=== PATIENT | male | born 1965 | race Caucasian/White ===

== ENCOUNTER → 2021-06-20 | Outpatient (CLI) | payer OTHER ==
[~2021-06-20] MED LIST: CYANOCOBALAMIN 1,000 MCG/ML 1 ML VIAL IM NR
[2021-06-20 15:20] VITALS: BP 143/86; PULSE 69; RESP 18; TEMP 97.9
== END ==
LOC: PROCWHC3 14:52
PROVIDERS: ATTEND Surgery Plastic and Reconstructive Surgery
DX: D51.9 Vitamin B12 deficiency anemia, unspecified (principal); Z88.1 Allergy status to other antibiotic agents; Z91.012 Allergy to eggs
CPT/HCPCS: 96372; J3420

== ENCOUNTER 2021-07-15 06:55 | Day surgery (SDC) | payer OTHER ==
[2021-07-11 10:56] VITALS: BMI 45.5
[~2021-07-15 06:55] MED LIST changes: -CYANOCOBALAMIN 1,000 MCG/ML 1 ML VIAL IM NR; +LACTATED RINGERS 1,000 ML IV SCH
[2021-07-15 07:13] VITALS: RESP 16; TEMP 96.3
[2021-07-15] MEDS ORDERED: LIDOCAINE 1% (10MG/ML) FOR IV START INTRADERMA ONE (07:24)
--- NOTE | 2021-07-15 07:38 | P.GSHP ---
History of Present Illness H&P Date: 07/15/21 CHIEF COMPLAINT: GERD HISTORY OF PRESENT ILLNESS: The patient is a 55-year-old male who presents reports gastroesophageal reflux disease. Upper endoscopy was offered for further evaluation and management. PAST MEDICAL HISTORY: Please see list. PAST SURGICAL HISTORY: Please see list. MEDICATIONS: Please see list. ALLERGIES: Please see list. SOCIAL HISTORY: No illicit drug use FAMILY HISTORY: No reports of Crohn disease or ulcerative colitis. REVIEW OF ORGAN SYSTEMS: CONSTITUTIONAL: No reports of fevers or chills. GI: Denies any blood in stools or constipation. PHYSICAL EXAM: VITAL SIGNS: Stable GENERAL: Well-developed and pleasant in no acute distress. HEENT: No scleral icterus. Extraocular movements grossly intact. Moist buccal mucosa. NECK: Supple without lymphadenopathy. CHEST: Unlabored respirations. Equal bilateral excursions. CARDIOVASCULAR: Regular rate and rhythm. Distal 2+ pulses. ABDOMEN: Soft, nondistended. MUSCULOSKELETAL: No clubbing, cyanosis, or edema. ASSESSMENT: 1. Gastroesophageal reflux disease PLAN: 1. Recommend proceeding with an upper endoscopy Past Medical History Past Medical History: Asthma, Hypertension, Sleep Apnea/CPAP/BIPAP Additional Past Medical History / Comment(s): borderline diabetic. hiatal hernia at age 23,uses cpap History of Any Multi-Drug Resistant Organisms: None Reported Past Surgical History: Tonsillectomy Additional Past Surgical History / Comment(s): varicose vein stripping right leg. bilateral cataract surgery 2019. Past Anesthesia/Blood Transfusion Reactions: No Reported Reaction Additional Past Anesthesia/Blood Transfusion Reaction / Comment(s): 06/05/21 - no blood transfusions to date. Smoking Status: Former smoker - Past Family History Mother Family Medical History: No Reported History Medications and Allergies Home Medications Medication Instructions Recorded Confirmed Type Budesonide-Formot 160-4.5 Mcg 2 inhalation INHALATION BID 06/20/21 07/15/21 History [Symbicort 160-4.5 Mcg Inhaler] Cetirizine HCl [Zyrtec] 10 mg PO HS 06/20/21 07/15/21 History Escitalopram [Lexapro] 10 mg PO HS 06/20/21 07/15/21 History Metoprolol Succinate [Toprol XL] 25 mg PO HS 06/20/21 07/15/21 History Multivitamins, Thera [Multivitamin 1 dose PO DAILY 06/20/21 07/15/21 History (formulary)] Zinc 25 mg PO DAILY 06/20/21 07/15/21 History amLODIPine [Norvasc] 10 mg PO HS 06/20/21 07/15/21 History hydroCHLOROthiazide [Hydrodiuril] 25 mg PO DAILY 06/20/21 07/15/21 History lisinopriL 40 mg PO HS 06/20/21 07/15/21 History Allergies Allergy/AdvReac Type Severity Reaction Status Date / Time cephalexin [From [place]] Allergy Rash/Hives Verified 07/11/21 10:48 egg Allergy Rash/Hives Verified 07/11/21 10:48 Surgical - Exam Vital Signs Temp Pulse Resp BP Pulse Ox 96.3 F L 63 16 152/85 94 L 07/15/21 07:10 07/15/21 07:10 07/15/21 07:10 07/15/21 07:10 07/15/21 07:10
[2021-07-15] MEDS ORDERED: PROPOFOL 10 MG/ML 20 ML VIAL IV ONE (07:40)
[2021-07-15] MEDS ORDERED: fentaNYL (PF) 50 MCG/ML 2 ML AMP ONE (07:40)
[2021-07-15 08:14] VITALS: BP 117/79; PULSE 60
--- NOTE | 2021-07-15 08:16 | P.PCN ---
Date of Procedure: 07/15/21 Description of Procedure: PREOPERATIVE DIAGNOSIS: Gastroesophageal reflux disease. Morbid obesity. POSTOPERATIVE DIAGNOSIS: Morbid obesity. Gastritis. Gastroesophageal reflux disease with erosive esophagitis Duodenitis OPERATION: Esophagogastroduodenoscopy with biopsies along antrum and duodenum SURGEON: Lucia Vega MD ANESTHESIA: MAC. INDICATIONS: The patient is a 55-year-old male who presents with a history of reflux disease. Benefits and risks of the procedure were described. Informed consent was obtained. DESCRIPTION: The patient was brought into the endoscopy suite and laid in the left lateral decubitus position. An Olympus gastroscope was passed along the posterior oropharynx down to the distal esophagus where the squamocolumnar junction was encountered at 41 cm from the incisors. The stomach was entered and no bile reflux was found. Additional findings are listed below. Biopsies with cold forceps were obtained of the antrum. The first through third portion of the duodenum was examined and remarkable for duodenitis. Retroflexion of the scope confirmed Hill grade 2 lower esophageal valve. The squamocolumnar junction demonstrated LA grade B erosive esophagitis. The stomach was desufflated. The patient tolerated the procedure well. FINDINGS: Squamocolumnar junction 41 cm from the incisors. Diaphragmatic hiatus at 41 cm. Hill grade 2 lower esophageal valve. LA grade B erosive esophagitis. Active duodenitis with mucosal hyperplasia along first portion of duodenum, bi opsies obtained Chronic gastritis, biopsies obtained RECOMMENDATIONS: 1. Omeprazole 40 mg daily for 2 weeks 2. Upper endoscopy as needed. Plan - Discharge Summary Discharge Rx Participant: No New Discharge Prescriptions: New RX: Omeprazole [PriLOSEC] 40 mg PO DAILY #14 cap Continue RX: Budesonide-Formot 160-4.5 Mcg [Symbicort 160-4.5 Mcg Inhaler] 2 inhalation INHALATION BID RX: amLODIPine [Norvasc] 10 mg PO HS RX: Cetirizine HCl [Zyrtec] 10 mg PO HS RX: Zinc 25 mg PO DAILY RX: lisinopriL 40 mg PO HS RX: Metoprolol Succinate [Toprol XL] 25 mg PO HS RX: hydroCHLOROthiazide [Hydrodiuril] 25 mg PO DAILY RX: Escitalopram [Lexapro] 10 mg PO HS RX: Multivitamins, Thera [Multivitamin (formulary)] 1 dose PO DAILY Discharge Medication List RX: Budesonide-Formot 160-4.5 Mcg [Symbicort 160-4.5 Mcg Inhaler] 2 inhalation INHALATION BID 06/20/21 [History] RX: Cetirizine HCl [Zyrtec] 10 mg PO HS 06/20/21 [History] RX: Escitalopram [Lexapro] 10 mg PO HS 06/20/21 [History] RX: Metoprolol Succinate [Toprol XL] 25 mg PO HS 06/20/21 [History] RX: Multivitamins, Thera [Multivitamin (formulary)] 1 dose PO DAILY 06/20/21 [History] RX: Zinc 25 mg PO DAILY 06/20/21 [History] RX: amLODIPine [Norvasc] 10 mg PO HS 06/20/21 [History] RX: hydroCHLOROthiazide [Hydrodiuril] 25 mg PO DAILY 06/20/21 [History] RX: lisinopriL 40 mg PO HS 06/20/21 [History] RX: Omeprazole [PriLOSEC] 40 mg PO DAILY #14 cap 07/15/21 [Rx] [place] [facility]ment[facility]Ref[place] [facility] [place] [place] [place] Patient Instructions/Handouts: Gastroesophageal Reflux Disease (DC), Esophagitis (DC), Diet for Stomach Ulcers and Gastritis (ED) Discharge Disposition: HOME SELF-CARE
== END 2021-07-15 08:37 | disposition home or self-care (01) ==
LOC: ORWHC2ENDO 06:55
PROVIDERS: ATTEND Surgery Plastic and Reconstructive Surgery
DX: K29.80 Duodenitis without bleeding (principal); K29.50 Unspecified chronic gastritis without bleeding; K21.00 Gastro-esophageal reflux disease with esophagitis, without bleeding; I10 Essential (primary) hypertension; G47.30 Sleep apnea, unspecified; R73.03 Prediabetes; J45.909 Unspecified asthma, uncomplicated; E66.01 Morbid (severe) obesity due to excess calories; Z68.42 Body mass index [BMI] 45.0-49.9, adult; Z98.890 Other specified postprocedural states; Z98.42 Cataract extraction status, left eye; Z98.41 Cataract extraction status, right eye; Z87.891 Personal history of nicotine dependence; Z79.51 Long term (current) use of inhaled steroids; Z79.899 Other long term (current) drug therapy; Z88.1 Allergy status to other antibiotic agents; Z91.012 Allergy to eggs
CPT/HCPCS: 88305; 43239; J3010; J2704

== ENCOUNTER → 2022-04-10 | Outpatient (CLI) | payer OTHER | END | disposition home or self-care (01) | LOC: LABWHC1 13:18 | PROVIDERS: ATTEND Surgery Plastic and Reconstructive Surgery | DX: Z53.9 Procedure and treatment not carried out, unspecified reason (principal) ==

== ENCOUNTER 2022-04-24 13:05 | Inpatient (IN) | payer OTHER ==
--- NOTE | 2022-04-24 09:03 | P.BASOAP ---
Subjective Progress Note Date: 04/24/22 CHIEF COMPLAINT: Morbid obesity HISTORY OF PRESENT ILLNESS: Long Biswas is a 56-year-old female who comes with lifelong morbid obesity. As a result of his morbid obesity, her has developed lower back pain, osteoarthritis of the knee, ankles and feet and sleep apnea. He comes in with hypertension. He has completed bariatric risk assessment. At height of 6 feet 1 inches, his ideal body weight is 188 pounds. His highest weight is 370 pounds, BMI 48.9. PAST MEDICAL HISTORY: 1. Morbid obesity due to excess calories 2. Body mass index of 48.9 initial 3. Chronic obstructive pulmonary disease 4. Depressive disorder 5. Hypertensive heart disease 6. Asthma 7. Sleep apnea PAST SURGICAL HISTORY: 1. Tonsillectomy 2. Bilateral cataract surgery 3. Vein stripping 4. Colonoscopy. HOME MEDICATIONS: Home Medications Medication Instructions Recorded Confirmed Budesonide-Formot 160-4.5 Mcg 2 inhalation INHALATION BID 06/20/21 09/04/21 [Symbicort 160-4.5 Mcg Inhaler] Cetirizine HCl [Zyrtec] 10 mg PO HS 06/20/21 09/04/21 Escitalopram [Lexapro] 10 mg PO HS 06/20/21 09/04/21 Metoprolol Succinate [Toprol XL] 25 mg PO HS 06/20/21 09/04/21 Multivitamins, Thera [Multivitamin 1 dose PO DAILY 06/20/21 09/04/21 (formulary)] Zinc 25 mg PO DAILY 06/20/21 09/04/21 amLODIPine [Norvasc] 10 mg PO HS 06/20/21 09/04/21 hydroCHLOROthiazide [Hydrodiuril] 25 mg PO DAILY 06/20/21 09/04/21 lisinopriL 40 mg PO HS 06/20/21 09/04/21 Previous Rx's Medication Instructions Recorded Omeprazole [PriLOSEC] 40 mg PO DAILY #14 cap 07/15/21 ALLERGIES: Allergies Allergy/AdvReac Type Severity Reaction Status Date / Time cephalexin [From [place]] Allergy Rash/Hives Verified 09/04/21 16:44 egg Allergy Rash/Hives Verified 09/04/21 16:44 SOCIAL HISTORY: Past tobacco use. FAMILY HISTORY: No family history of ulcerative colitis disease or Crohn's disease. Family history of morbid obesity. No lupus in the family. No reports of stomach or esophageal cancer. His mother and daughter has troubles with t heir weight. His mother had her gallbladder removed. His mother has sleep apnea. REVIEW OF ORGAN SYSTEMS: CONSTITUTIONAL: At height of 6 feet 1 inches, his ideal body weight is 188 pounds. His highest weight is 370 pounds, BMI 48.9. He comes in 356 pounds. His body mass index is 47.0. He is 168 pounds overweight. HEENT: Denies any active troubles with vision or hearing. ENDOCRINE: Denies diabetes. No hypothyroidism. CARDIOVASCULAR: Has hypertensive heart disease. RESPIRATORY: Has chronic obstructive pulmonary disease. Has asthma. Has sleep apnea. GASTROINTESTINAL: Denies any bright red blood per rectum. No diarrhea. No constipation. GENITOURINARY: Denies bladder urgency. No recent blood in urine MUSCULOSKELETAL: He has lower back pain. No hip pain. He has both knee pain, including ankles and feet. NEURO: No headaches. No seizure disorders. Has neuropathy. PSYCH: Has depression. No suicidal ideation. RHEUMATOLOGIC: No lupus. No rheumatoid arthritis. HEMATOLOGIC: Denies any abnormal bleeding or bruising. SKIN: No rash. No skin cancer. PHYSICAL EXAM: VITAL SIGNS: Height 6 foot 1 inches, weight 356 pounds. BMI 47.0 GENERAL: Well-developed in no acute distress. HEENT: No scleral icterus. Extraocular movements grossly intact. Hears conversational speech. No nasal drainage. NECK: Supple without lymphadenopathy. CHEST: Nonlabored respirations with equal bilateral excursions. CARDIOVASCULAR: Regular rate and regular rhythm. Distal 2+ pulses. ABDOMEN: Obese, soft, nontender, nondistended. MUSCULOSKELETAL: No clubbing, cyanosis. NEURO: No focal or lateralizing signs. Cranial nerves 2 through 12 grossly within normal limits. PSYCH: Appropriate affect. Alert and oriented to person, place and time. SKIN: Good skin turgor. Well perfused. ASSESSMENT: 1. Morbid obesity due to excess calories 2. Body mass index of 48.9 initial 3. Chronic obstructive pulmonary disease 4. Depressive disorder 5. Hypertensive heart disease 6. Asthma 7. Sleep apnea 8. Chronic gastritis 9. Hypertriglyceridemia 10. Vitamin B12 deficiency 11. Zinc deficiency 12. Osteoarthritis of the knees 13. Osteoarthritis of the back PLAN: 1. Bariatric options between a sleeve, band and a Otto-en-Y gastric bypass were reviewed in detail. The patient elected for a sleeve gastrectomy. Robotic assisted approach described. 2. The [place] [facility] Data was also reviewed with benefits and risks as described. 3. An 8 page second-generation bariatric consent form was reviewed in detail including potential of bleeding, infection, leaks, adequate weight loss, nutritional deficiencies which the patient demonstrated understanding of the risks. 4. A 2 week high-protein low caloric 800 kcal diet described to address hepatomegaly. 5. Preoperative labs including complete metabolic panel and CBC with type and screen recommended. 6. DVT prophylaxis per [place] [facility]. 7. Antibiotic prophylaxis. 8. Inpatient hospitalization anticipated for more than 2 nights. 9. All questions and concerns were addressed with the patient. 10. The patient is at elevated risk for perioperative complications with sleep apnea and hypertensive heart disease. 11. Overall, patient has expressed understanding of bariatric care including postoperative diet and commitment of lifestyle. Patient should benefit from surgical intervention for correction of her morbid obesity. Assessment/Plan Plan: Date: Initial Weight: Initial BMI: Current Weight: 138.346 kg Current BMI: 40.2 Type of Surgery: Total Volume in Band: Previous Volume: Volume Removed: Volume Added: Band Size:
[~2022-04-24 13:05] MED LIST changes: +ACETAMINOPHEN TAB 500 MG TAB PO PRN; +CHLORHEXIDINE GLUCONATE 15 ML CUP MUCOUS MEM PRN; +DEXAMETHASONE SOD PHOSPHATE 4 MG/ML 1 ML VIAL IV ONE; +ENOXAPARIN 40 MG/0.4 ML SYRINGE SQ PRN; +GABAPENTIN 300 MG CAP PO PRN; +HYDROmorphone 0.5 MG/0.5 ML SYRINGE IVP PRN; -LACTATED RINGERS 1,000 ML IV SCH; +LIDOCAINE 1% (10MG/ML) FOR IV START INTRADERMA PRN; +METOCLOPRAMIDE 5 MG/ML 2 ML VIAL IVP PRN; +ONDANSETRON 4 MG/2 ML VIAL IVP ONE; +PANTOPRAZOLE 40 MG/10 ML VIAL IVP PRN; +SCOPOLAMINE 1 MG/72 HR PATCH TRANSDERM PRN; +ceFAZolin 3 GM in SODIUM CHLORIDE 0.9% 100 ML IVPB PRN
[2022-04-24 13:59] LABS: Glucose,Whole Blood 88 mg/dL (70-110)
[2022-04-24] MEDS: LACTATED RINGERS 1,000 ML IV SCH ×2 (14:01→14:50)
[2022-04-24 14:08] LABS: Basophils # (A) 0.1 k/uL (0-0.2); Basophils % (A) 1 %; Eosinophils # (A) 0.4 k/uL (0-0.7); Eosinophils % (A) 5 %; HCT 46.6 % (39.0-53.0); HGB 16.3 gm/dL (13.0-17.5); Lymphocytes # (A) 2.2 k/uL (1.0-4.8); Lymphocytes % (A) 29 %; MCV 88.6 fL (80.0-100.0); Mean Platelet Volume 7.2; Monocytes # (A) 0.3 k/uL (0-1.0); Monocytes % (A) 5 %; Neutrophils # (A) 4.4 k/uL (1.3-7.7); Neutrophils % (A) 58 %; Platelet Count 208 k/uL (150-450); RBC 5.25 m/uL (4.30-5.90); RDW 13.2 % (11.5-15.5); WBC 7.6 k/uL (3.8-10.6)
[2022-04-24 14:23] LABS: ALT 25 U/L (4-49); AST 30 U/L (17-59); African American GFR (CKD) >90 (>60 ml/min/1.73 sqM); Albumin 4.5 g/dL (3.5-5.0); Alkaline Phosphatase 77 U/L (38-126); Anion Gap 9 mmol/L; Blood Urea Nitrogen 15 mg/dL (9-20); Calcium 9.7 mg/dL (8.4-10.2); Carbon Dioxide 25 mmol/L (22-30); Chloride 103 mmol/L (98-107); Glucose 84 mg/dL (74-99); Non-African American GFR(CKD) >90 (>60 ml/min/1.73 sqM); Potassium 4.1 mmol/L (3.5-5.1); Sodium 137 mmol/L (137-145)
[2022-04-24] MEDS ORDERED: LIDOCAINE 2% INJ 20 MG/ML (2 ML VIAL) ONE (14:39)
[2022-04-24] MEDS ORDERED: PHENYLEPHRINE-0.9% NACL SYG 1,000 MCG/10 ML SYRINGE ONE (14:39)
[2022-04-24] MEDS ORDERED: HYDROmorphone (PF) 1 MG/ML ONE (14:39)
[2022-04-24] MEDS ORDERED: NEOSTIGMINE 1 MG/ML 10 ML VIAL ONE (14:39)
[2022-04-24] MEDS ORDERED: fentaNYL (PF) 50 MCG/ML 2 ML AMP ONE (14:39)
[2022-04-24] MEDS ORDERED: ROCURONIUM 10 MG/ML (5 ML VIAL) IV ONE (14:39)
[2022-04-24] MEDS ORDERED: GLYCOPYRROLATE 0.2 MG/ML 2 ML VIAL ONE (14:39)
[2022-04-24] MEDS ORDERED: KETOROLAC 15 MG/ML 1 ML VIAL ONE (14:39)
[2022-04-24] MEDS ORDERED: PROPOFOL 10 MG/ML 20 ML VIAL IV ONE (14:39)
[2022-04-24] MEDS ORDERED: MIDAZOLAM 2 MG/2 ML VIAL ONE (14:39)
[2022-04-24] MEDS ORDERED: BUPIVACAIN-EPI 0.25%-1:200,000 30 ML VIAL SQ ONE (15:40)
[2022-04-24] MEDS ORDERED: LACTATED RINGERS 1,000 ML IV ONE (15:49)
[2022-04-24] MEDS ORDERED: diphenhydrAMINE 50 MG/ML 1 ML VIAL IVP PRN (16:46)
[2022-04-24] MEDS ORDERED: HYDROmorphone 1 MG/ML 1 ML SYRINGE IVP PRN (16:46)
[2022-04-24] MEDS ORDERED: NALOXONE 0.4 MG/ML 1 ML VIAL IV PRN (16:46)
[2022-04-24] MEDS ORDERED: SIMETHICONE 40 MG/0.6 ML DROPS 2,000 MG/30 ML BOTTLE PO PRN (16:46)
--- NOTE | 2022-04-24 16:56 | P.GSHP ---
History of Present Illness H&P Date: 04/24/22 CHIEF COMPLAINT: Morbid obesity HISTORY OF PRESENT ILLNESS: Long Biswas is a 56-year-old female who comes with lifelong morbid obesity. As a result of his morbid obesity, her has developed lower back pain, osteoarthritis of the knee, ankles and feet and sleep apnea. He comes in with hypertension. He has completed bariatric risk assessment. At height of 6 feet 1 inches, his ideal body weight is 188 pounds. His highest weight is 370 pounds, BMI 48.9. PAST MEDICAL HISTORY: 1. Morbid obesity due to excess calories 2. Body mass index of 48.9 initial 3. Chronic obstructive pulmonary disease 4. Depressive disorder 5. Hypertensive heart disease 6. Asthma 7. Sleep apnea PAST SURGICAL HISTORY: 1. Tonsillectomy 2. Bilateral cataract surgery 3. Vein stripping 4. Colonoscopy. HOME MEDICATIONS: Home Medications Medication Instructions Recorded Confirmed Budesonide-Formot 160-4.5 Mcg 2 inhalation INHALATION BID 06/20/21 09/04/21 [Symbicort 160-4.5 Mcg Inhaler] Cetirizine HCl [Zyrtec] 10 mg PO HS 06/20/21 09/04/21 Escitalopram [Lexapro] 10 mg PO HS 06/20/21 09/04/21 Metoprolol Succinate [Toprol XL] 25 mg PO HS 06/20/21 09/04/21 Multivitamins, Thera [Multivitamin 1 dose PO DAILY 06/20/21 09/04/21 (formulary)] Zinc 25 mg PO DAILY 06/20/21 09/04/21 amLODIPine [Norvasc] 10 mg PO HS 06/20/21 09/04/21 hydroCHLOROthiazide [Hydrodiuril] 25 mg PO DAILY 06/20/21 09/04/21 lisinopriL 40 mg PO HS 06/20/21 09/04/21 Previous Rx's Medication Instructions Recorded Omeprazole [PriLOSEC] 40 mg PO DAILY #14 cap 07/15/21 ALLERGIES: Allergies Allergy/AdvReac Type Severity Reaction Status Date / Time cephalexin [From [place]ef[place]] Allergy Rash/Hives Verified 09/04/21 16:44 egg Allergy Rash/Hives Verified 09/04/21 16:44 SOCIAL HISTORY: Past tobacco use. FAMILY HISTORY: No family history of ulcerative colitis disease or Crohn's disease. Family history of morbid obesity. No lupus in the family. No reports of stomach or esophageal cancer. His mother and daughter has troubles with their weight. His mother had her gallbladder removed. His mother has sleep apnea. REVIEW OF ORGAN SYSTEMS: CONSTITUTIONAL: At height of 6 feet 1 inches, his ideal body weight is 188 pounds. His highest weight is 370 pounds, BMI 48.9. He comes in 356 pounds. His body mass index is 47.0. He is 168 pounds overweight. HEENT: Denies any active troubles with vision or hearing. ENDOCRINE: Denies diabetes. No hypothyroidism. CARDIOVASCULAR: Has hypertensive heart disease. RESPIRATORY: Has chronic obstructive pulmonary disease. Has asthma. Has sleep apnea. GASTROINTESTINAL: Denies any bright red blood per rectum. No diarrhea. No constipation. GENITOURINARY: Denies bladder urgency. No recent blood in urine MUSCULOSKELETAL: He has lower back pain. No hip pain. He has both knee pain, including ankles and feet. NEURO: No headaches. No seizure disorders. Has neuropathy. PSYCH: Has depression. No suicidal ideation. RHEUMATOLOGIC: No lupus. No rheumatoid arthritis. HEMATOLOGIC: Denies any abnormal bleeding or bruising. SKIN: No rash. No skin cancer. PHYSICAL EXAM: VITAL SIGNS: Height 6 foot 1 inches, weight 356 pounds. BMI 47.0 GENERAL: Well-developed in no acute distress. HEENT: No scleral icterus. Extraocular movements grossly intact. Hears conversational speech. No nasal drainage. NECK: Supple without lymphadenopathy. CHEST: Nonlabored respirations with equal bilateral excursions. CARDIOVASCULAR: Regular rate and regular rhythm. Distal 2+ pulses. ABDOMEN: Obese, soft, nontender, nondistended. MUSCULOSKELETAL: No clubbing, cyanosis. NEURO: No focal or lateralizing signs. Cranial nerves 2 through 12 grossly within normal limits. PSYCH: Appropriate affect. Alert and oriented to person, place and time. SKIN: Good skin turgor. Well perfused. ASSESSMENT: 1. Morbid obesity due to excess calories 2. Body mass index of 48.9 initial 3. Chronic obstructive pulmonary disease 4. Depressive disorder 5. Hypertensive heart disease 6. Asthma 7. Sleep apnea 8. Chronic gastritis 9. Hypertriglyceridemia 10. Vitamin B12 deficiency 11. Zinc deficiency 12. Osteoarthritis of the knees 13. Osteoarthritis of the back PLAN: 1. Bariatric options between a sleeve, band and a Otto-en-Y gastric bypass were reviewed in detail. The patient elected for a sleeve gastrectomy. Robotic assisted approach described. 2. The [place] [facility] Data was also reviewed with benefits and risks as described. 3. An 8 page second-generation bariatric consent form was reviewed in detail including potential of bleeding, infection, leaks, adequate weight loss, nutritional deficiencies which the patient demonstrated understanding of the ri sks. 4. A 2 week high-protein low caloric 800 kcal diet described to address hepatomegaly. 5. Preoperative labs including complete metabolic panel and CBC with type and screen recommended. 6. DVT prophylaxis per [place] [facility]. 7. Antibiotic prophylaxis. 8. Inpatient hospitalization anticipated for more than 2 nights. 9. All questions and concerns were addressed with the patient. 10. The patient is at elevated risk for perioperative complications with sleep apnea and hypertensive heart disease. 11. Overall, patient has expressed understanding of bariatric care including postoperative diet and commitment of lifestyle. Patient should benefit from surgical intervention for correction of her morbid obesity. Past Medical History Past Medical History: Asthma, Diabetes Mellitus, Hypertension, Sleep Apnea/CPAP/BIPAP Additional Past Medical History / Comment(s): borderline diabetic. USES C-PAP MACHINE History of Any Multi-Drug Resistant Organisms: None Reported Past Surgical History: Tonsillectomy Additional Past Surgical History / Comment(s): varicose vein stripping right leg. bilateral cataract surgery 2019. EGD Past Anesthesia/Blood Transfusion Reactions: No Reported Reaction Additional Past Anesthesia/Blood Transfusion Reaction / Comment(s): 06/05/21 - no blood transfusions to date. Smoking Status: Former smoker - Past Family History Mother Family Medical History: No Reported History Medications and Allergies Home Medications Medication Instructions Recorded Confirmed Type Cetirizine HCl [Zyrtec] 10 mg PO HS 06/20/21 04/21/22 History Escitalopram [Lexapro] 10 mg PO HS 06/20/21 04/21/22 History Multivitamins, Thera [Multivitamin 1 dose PO DAILY 06/20/21 04/21/22 History (formulary)] amLODIPine [Norvasc] 10 mg PO HS 06/20/21 04/21/22 History hydroCHLOROthiazide [Hydrodiuril] 25 mg PO DAILY 06/20/21 04/21/22 History lisinopriL 40 mg PO HS 06/20/21 04/21/22 History Omeprazole [PriLOSEC] 40 mg PO DAILY #14 cap 07/15/21 04/21/22 Rx Calcium Carb/Mag Ox/Zinc Sulf 1 each PO DAILY 04/09/22 04/21/22 History [Bmw-Pls-Rjdy 334-134-5 mg Tab] Fluticasone Propion/Salmeterol 1 inhalation PO BID 04/09/22 04/21/22 History [Advair 100-50 Diskus] Azelastine HCl [Astepro] 137 mcg NASAL DAILY 04/21/22 04/21/22 History Allergies Allergy/AdvReac Type Severity Reaction Status Date / Time cephalexin [From [facility]] Allergy Rash/Hives Verified 04/24/22 13:33 egg Allergy Rash/Hives Verified 04/24/22 13:33 Surgical - Exam Vital Signs Temp Pulse Resp BP Pulse Ox 97.5 F L 85 20 133/73 94 L 04/24/22 13:40 04/24/22 13:40 04/24/22 13:40 04/24/22 13:40 04/24/22 13:40 Results - Labs 04/24/22 14:00 04/24/22 14:00 Diabetes panel 04/24/22 Range/Units 14:00 Sodium 137 (137-145) mmol/L Potassium 4.1 (3.5-5.1) mmol/L Chloride 103 (98-107) mmol/L Carbon Dioxide 25 (22-30) mmol/L BUN 15 (9-20) mg/dL Creatinine 0.92 (0.66-1.25) mg/dL Glucose 84 (74-99) mg/dL Calcium 9.7 (8.4-10.2) mg/dL AST 30 (17-59) U/L ALT 25 (4-49) U/L Alkaline Phosphatase 77 (38-126) U/L Total Protein 7.0 (6.3-8.2) g/dL Albumin 4.5 (3.5-5.0) g/dL Calcium panel 04/24/22 Range/Units 14:00 Calcium 9.7 (8.4-10.2) mg/dL Albumin 4.5 (3.5-5.0) g/dL Pituitary panel 04/24/22 Range/Units 14:00 Sodium 137 (137-145) mmol/L Potassium 4.1 (3.5-5.1) mmol/L Chloride 103 (98-107) mmol/L Carbon Dioxide 25 (22-30) mmol/L BUN 15 (9-20) mg/dL Creatinine 0.92 (0.66-1.25) mg/dL Glucose 84 (74-99) mg/dL Calcium 9.7 (8.4-10.2) mg/dL Adrenal panel 04/24/22 Range/Units 14:00 Sodium 137 (137-145) mmol/L Potassium 4.1 (3.5-5.1) mmol/L Chloride 103 (98-107) mmol/L Carbon Dioxide 25 (22-30) mmol/L BUN 15 (9-20) mg/dL Creatinine 0.92 (0.66-1.25) mg/dL Glucose 84 (74-99) mg/dL Calcium 9.7 (8.4-10.2) mg/dL Total Bilirubin 1.0 (0.2-1.3) mg/dL AST 30 (17-59) U/L ALT 25 (4-49) U/L Alkaline Phosphatase 77 (38-126) U/L Total Protein 7.0 (6.3-8.2) g/dL Albumin 4.5 (3.5-5.0) g/dL
--- NOTE | 2022-04-24 16:59 | P.OP ---
Date of Procedure: 04/24/22 Description of Procedure: SURGEON: SHANEL ARIAS MD PREOPERATIVE DIAGNOSES: 1. Morbid obesity due to excess calories 2. Body mass index of 48.9 initial 3. Chronic obstructive pulmonary disease 4. Depressive disorder 5. Hypertensive heart disease 6. Asthma 7. Sleep apnea 8. Chronic gastritis 9. Hypertriglyceridemia 10. Vitamin B12 deficiency 11. Zinc deficiency 12. Osteoarthritis of the knees 13. Osteoarthritis of the back 1. Morbid obesity due to excess calories 2. Body mass index of 48.9 initial 3. Chronic obstructive pulmonary disease 4. Depressive disorder 5. Hypertensive heart disease 6. Asthma 7. Sleep apnea 8. Chronic gastritis 9. Hypertriglyceridemia 10. Vitamin B12 deficiency 11. Zinc deficiency 12. Osteoarthritis of the knees 13. Osteoarthritis of the back OPERATION: 1. Robotic assisted daVinci Xi laparoscopic sleeve gastrectomy with 40-Nepalese bougie, multiport. 2. Intraoperative esophagogastroduodenoscopy. ANESTHESIA: Gen. local anesthetic ESTIMATED BLOOD LOSS: 10 mL SPECIMENS REMOVED: Sleeve gastrectomy COMPLICATIONS: None. FINDINGS: 1. Negative intraoperative esophagogastrojejunoscopy leak test. 2. No large hiatus hernia. 3. Total of 6 staplers used including 2 - 60 mm green and 4 - 60 mm blue robot amadou used to create the gastric sleeve. 4. Sleeve gastrectomy 28 x 6 cm INDICATIONS: Long Biswas is a 56-year-old male who comes with lifelong morbid obesity. As a result of his morbid obesity, her has developed lower back pain, osteoarthritis of the knee, ankles and feet and sleep apnea. He comes in with hypertension. He has completed bariatric risk assessment. At height of 6 feet 1 inches, his ideal body weight is 188 pounds. His highest weight is 370 pounds, BMI 48.9. He comes in 304 pounds, BMI 40.1. All surgical options for morbid obesity had been described using the [place] bariatric surgery collaborative comorbidity resolution including complication risk score. A second-generation bariatric consent form was described in detail including the possibility of protein malnutrition, leaks, gastric stricture, venous thrombosis, gastroesophageal reflux disease, need for further surgery for which he demonstrated understanding. Benefits and risks of the procedure were d escribed at length. Informed consent was obtained. DESCRIPTION: The patient was brought into the operating room theater. Preoperatively he had received Lovenox subcutaneously for DVT prophylaxis. Ad ditionally he had Peridex oral solution as an oral decontaminant. After general induction, the abdomen was prepped and draped in standard sterile fashion. An Ioban draping was placed along the abdomen. No ramos catheter was placed. A robotic da Saundra Xi system was prepped and primed. At 15 cm from the xiphoid, proposed port sites were marked with indelible marker along the anterior axillary line bilaterally, mid axillary line bilaterally with each ports were marked 10 to 15 cm from each other. The multimedia production assistant port was marked along the left lateral abdominal wall. The robotic stapler port was marked for the right midclavicular line. A 5 mm 0 degrees laparoscopic trocar entry was performed along the left upper quadrant. The abdomen was insufflated to 15 mmHg pressure he tolerated well. Diagnostic laparoscopy demonstrated no injury to bowel, viscera, or mesentery. The liver surface was unremarkable for fatty liver disease. No injury had occurred to the small bowel or viscera. Along the hiatus no recurrent hiatal hernia was found. A 8 mm port was placed along the right upper abdominal wall after exchanging the 5 mm port. A separate 8 mm port was placed along the left lateral abdominal wall. Please note that the ports were placed at least 20 cm away from the target anatomy. Care was taken to check each robotic arms were safely away from collision with the bed or the patient. At the epigastrium, a medium sized Crissy liver retractor was placed under direct visualization with the Iron Tonsorial Artist placed under the right shoulder of the patient. Next, 12-mm robot stapler port was placed along the right upper quadrant. The camera 8-mm port was maintained along the epigastrium. The patient was repositioned in reverse Trendelenburg position at 21-degrees after lowering the bed. The robot was docked along the left side of the patient. Using a grasper for arm 4, a veseel sealer for arm 3, including grasper for arm 1, the robotic system was docked and primed as described. Instruments were interchanged by the multimedia production assistant for stapler loads. The camera was placed at 30-degrees down. I had sat at the console. The pylorus was identified and 6 cm proximally along the greater curvature of the stomach, the short gastrics were mobilized upwards to the angle of His using a vessel sealer. Hemostasis was excellent during this portion of the procedure. Next, the upper pole of the stomach was adherent to the left gregory, which was gently dissected free using atraumatic grasper. The nursing assistant credit manager placed a 40-Nepalese blunted tip bougie into the stomach. Robotic stapler green loads 60 mm x 2 including 60 mm x 4 blue staple loads were used to create the sleeve. Initial firing was across the antrum of the stomach towards the angle of His. The staple line was completely hemostatic and linear without corkscrewing. Hemostasis was excellent. The space from the angularis incisura of the sleeve was approximately 4 cm. I then went to the head of the bed to perform the intraoperative esophagogastroduodenoscopy leak test. The upper pole of the stomach was bathed using normal saline solution. The scope was withdrawn with careful inspection along the staple line for which no leaks were found along the entire length. Additionally, the sleeve was completely hemostatic without any encroachment along the angularis incisura. Its topology was a soft "J". No stricture was encountered upon placement of the scope. The GI tract was desufflated. The patient tolerated this portion of the procedure well. The scope was completely withdrawn. The robot was undocked. I then rescrubbed into case, whereby the irrigation fluid was aspirated from the abdominal cavity. Tisseel fibrin sealant was placed along the staple length. Once dried the Crissy liver retractor was removed. Attention was now brought to removal of the specimen. The distal end of the sleeve gastrectomy specimen was brought out through the 12 mm port at the left upper quadrant. The specimen was gently removed en total, corresponding to 28 cm x 6 cm sleeve gastrectomy specimen. No contamination had occurred during this process. All instruments and pneumoperitoneum including irrigation fluid was removed from the abdominal cavity. The 12 mm port site was irrigated with warm normal saline solution and diluted hydron peroxide. The 12-mm port site was reapproximated using 0 Vicryl and Shivam-Juan of the left upper quadrant. The final incisions were closed using subcuticular interrupted suture of 4-0 Monocryl. Dermabond was applied to the skin once the skin had been cleansed. OptiFoam dressing was placed along the stomach extraction site. At the end of the procedure, needle, sponge, and instrument count was verified correct by the surgical aide. The patient was taken to the postanesthesia care unit in stable condition. He had tolerated the procedure well. Intraoperative films and findings were reviewed with the patient's family. Plan - Discharge Summary Discharge Rx Participant: Yes New Discharge Prescriptions: No Action amLODIPine [Norvasc] 10 mg PO HS Cetirizine HCl [Zyrtec] 10 mg PO HS Omeprazole [PriLOSEC] 40 mg PO DAILY #14 cap Calcium Carb/Mag Ox/Zinc Sulf [Quy-Whd-Izrt 334-134-5 mg Tab] 1 each PO DAILY Azelastine HCl [Astepro] 137 mcg NASAL DAILY lisinopriL 40 mg PO HS hydroCHLOROthiazide [Hydrodiuril] 25 mg PO DAILY Escitalopram [Lexapro] 10 mg PO HS Multivitamins, Thera [Multivitamin (formulary)] 1 dose PO DAILY Fluticasone Propion/Salmeterol [Advair 100-50 Diskus] 1 inhalation PO BID Discharge Medication List Cetirizine HCl [Zyrtec] 10 mg PO HS 06/20/21 [History] Escitalopram [Lexapro] 10 mg PO HS 06/20/21 [History] Multivitamins, Thera [Multivitamin (formulary)] 1 dose PO DAILY 06/20/21 [History] amLODIPine [Norvasc] 10 mg PO HS 06/20/21 [History] hydroCHLOROthiazide [Hydrodiuril] 25 mg PO DAILY 06/20/21 [History] lisinopriL 40 mg PO HS 06/20/21 [History] Omeprazole [PriLOSEC] 40 mg PO DAILY #14 cap 07/15/21 [Rx] Calcium Carb/Mag Ox/Zinc Sulf [Cud-Zvw-Opdy 334-134-5 mg Tab] 1 each PO DAILY 04/09/22 [History] Fluticasone Propion/Salmeterol [Advair 100-50 Diskus] 1 inhalation PO BID 04/09/22 [History] Azelastine HCl [Astepro] 137 mcg NASAL DAILY 04/21/22 [History]
[2022-04-24] MEDS: ONDANSETRON 4 MG/2 ML VIAL IVP SCH (18:07)
[2022-04-24] MEDS: DEXAMETHASONE SOD PHOSPHATE 4 MG/ML 1 ML VIAL IVP SCH (18:07)
[2022-04-24] MEDS ORDERED: SODIUM CHLORIDE 0.9% 1,000 ML IV ONE (20:00)
[2022-04-24] MEDS: ALBUTEROL NEBULIZED 2.5 MG/3 ML INHALATION SCH (20:09)
[2022-04-24] MEDS: SYMBICORT 80-4.5 MCG INHALER INHALATION SCH (20:09)
[2022-04-24] MEDS ORDERED: lisinopriL 20 MG TAB PO SCH (21:00)
[2022-04-24] MEDS ORDERED: LORATADINE 10 MG TAB PO SCH (21:00)
[2022-04-24] MEDS ORDERED: amLODIPine 10 MG TAB PO SCH (21:00)
[2022-04-24] MEDS: PANTOPRAZOLE 40 MG/10 ML VIAL IV SCH (21:20)
[2022-04-24] MEDS: ACETAMINOPHEN IV (For NPO) 1,000 MG in EMPTY BAG 1 BAG IVPB SCH (21:43)
[2022-04-24] MEDS ORDERED: ceFAZolin 3 GM in SODIUM CHLORIDE 0.9% 100 ML IVPB SCH (23:00)
[2022-04-25] MEDS: 0.9% NACL WITH KCL 20 MEQ/L 1,000 ML IV SCH ×2 (05:23→05:25)
[2022-04-25] MEDS: ACETAMINOPHEN IV (For NPO) 1,000 MG in EMPTY BAG 1 BAG IVPB SCH ×2 (05:36→11:05)
[2022-04-25] MEDS: ONDANSETRON 4 MG/2 ML VIAL IVP SCH ×3 (05:39→13:14)
[2022-04-25] MEDS: DEXAMETHASONE SOD PHOSPHATE 4 MG/ML 1 ML VIAL IVP SCH ×3 (05:39→13:14)
[2022-04-25] MEDS ORDERED: ceFAZolin 3 GM in SODIUM CHLORIDE 0.9% 100 ML IVPB SCH (06:00)
[2022-04-25] MEDS ORDERED: 0.9% NACL WITH KCL 20 MEQ/L 1,000 ML IV SCH (08:00)
[2022-04-25] MEDS: PANTOPRAZOLE 40 MG/10 ML VIAL IV SCH (08:25)
[2022-04-25] MEDS: ALBUTEROL NEBULIZED 2.5 MG/3 ML INHALATION SCH ×3 (08:43→12:04)
[2022-04-25] MEDS: SYMBICORT 80-4.5 MCG INHALER INHALATION SCH ×2 (08:43→12:02)
[2022-04-25] MEDS ORDERED: ENOXAPARIN 40 MG/0.4 ML SYRINGE SQ SCH (09:00)
[2022-04-25] MEDS ORDERED: hydroCHLOROthiazide 25 MG TAB PO SCH (09:00)
[2022-04-25 09:20] VITALS: BP 124/69; PULSE 56; RESP 17; TEMP 98.4
--- NOTE | 2022-04-25 09:56 | FL ---
EXAMINATION TYPE: FL UGI DATE OF EXAM: 04/25/2022 CLINICAL HISTORY: Status post gastric sleeve Contrast: Omnipaque 350 50 mL The patient ingested contrast without difficulty or delay. Noted are postsurgical changes of gastric sleeve. There is no evidence for leak or obstruction. Contrast is noted within the duodenum. IMPRESSION: Post-surgical change of gastric sleeve without evidence for obstruction or leak at this point in time.
[2022-04-25 10:50] LABS: Basophils # (A) 0.01 X 10*3/uL (0.00-0.10); Basophils % (A) 0.1 %; Eosinophils # (A) 0 X 10*3/uL (0.04-0.35); Eosinophils % (A) 0 %; HCT 41.7 % (39.6-50.0); HGB 13.8 g/dL (13.0-17.0); Immature Grans, Automated 0.4 %; Lymphocytes # (A) 1.04 X 10*3/uL (0.90-5.00); Lymphocytes % (A) 12.9 %; MCH 28.8 pg (27.0-32.0); MCHC 33.1 g/dL (32.0-37.0); MCV 87.1 fL (80.0-97.0); Mean Platelet Volume 10.5 fL (9.5-12.2); Monocytes # (A) 0.35 X 10*3/uL (0.20-1.00); Monocytes % (A) 4.3 %; NRBC Per 100 WBC 0 /100 WBCS (0.0-0.0); Neutrophils # (A) 6.64 X 10*3/uL (1.80-7.70); Neutrophils % (A) 82.3 %; Platelet Count 210 X 10*3/uL (140-440); RBC 4.79 X 10*6/uL (4.40-5.60); RDW 12.6 % (11.5-14.5); WBC 8.07 X 10*3/uL (4.50-10.00)
[2022-04-25 11:15] LABS: African American GFR (CKD) 96.1 (60.0-200.0); Anion Gap 15.4 mmol/L (10.00-18.00); Blood Urea Nitrogen 13.5 mg/dL (9.0-27.0); Calcium 8.5 mg/dL (8.7-10.3); Carbon Dioxide 19.3 mmol/L (20.0-27.5); Magnesium 1.8 mg/dL (1.5-2.4); Non-African American GFR(CKD) 82.9 (60.0-200.0); Phosphorus 3.1 mg/dL (2.4-5.1); Potassium 4.7 mmol/L (3.5-5.5)
[2022-04-25 11:37] VITALS: BMI 40.1
--- NOTE | 2022-04-25 13:11 | P.DS ---
Providers Date of admission: 04/24/22 13:05 Expected date of discharge: 04/25/22 Attending physician: Lucia Vega Primary care physician: Concepcion Crawford [facility] Course: Discharge diagnosis 1. Morbid obesity due to excess calories 2. Body mass index of 48.9 initial 3. Chronic obstructive pulmonary disease 4. Depressive disorder 5. Hypertensive heart disease 6. Asthma 7. Sleep apnea 8. Chronic gastritis 9. Hypertriglyceridemia 10. Vitamin B12 deficiency 11. Zinc deficiency 12. Osteoarthritis of the knees 13. Osteoarthritis of the back Hospital course Long Biswas is a 56-year-old male who comes with lifelong morbid obesity. As a result of his morbid obesity, her has developed lower back pain, osteoarthritis of the knee, ankles and feet and sleep apnea. He comes in with hypertension. Patient is status post robotic-assisted sleeve gastrectomy. Patient tolerated surgery well. His pain is controlled. He has been up and ambulating. Upper GI showed no evidence of leak or obstruction. He is having flatus. He is tolerating diet. He is afebrile. He is stable for discharge. Physician Loss Prevention Auditor note has been reviewed by physician. Signing provider agrees with the documented findings, assessment, and plan of care. Patient Condition at Discharge: Stable Plan - Discharge Summary Discharge Rx Participant: Yes New Discharge Prescriptions: New bisacodyL [Dulcolax] 5 mg PO DAILY PRN #10 tab PRN Reason: Constipation Simethicone 40 mg/0.6 ml Drops [Mylicon Drops] 40 mg PO PCHS PRN #30 ml PRN Reason: Gas Ondansetron Odt [Zofran Odt] 4 mg PO Q8HR PRN #9 tab PRN Reason: Nausea Acetaminophen Tab [Tylenol] 1,000 mg PO Q6HR PRN #30 tablet PRN Reason: Pain Continue amLODIPine [Norvasc] 10 mg PO HS Cetirizine HCl [Zyrtec] 10 mg PO HS Azelastine HCl [Astepro] 137 mcg NASAL DAILY Omeprazole [PriLOSEC] 40 mg PO DAILY #30 cap lisinopriL 40 mg PO HS hydroCHLOROthiazide [Hydrodiuril] 25 mg PO DAILY Escitalopram [Lexapro] 10 mg PO HS Fluticasone Propion/Salmeterol [Advair 100-50 Diskus] 1 inhalation PO BID Discontinued Calcium Carb/Mag Ox/Zinc Sulf [Dfu-Prc-Gxcs 334-134-5 mg Tab] 1 each PO DAILY Multivitamins, Thera [Multivitamin (formulary)] 1 dose PO DAILY Discharge Medication List Cetirizine HCl [Zyrtec] 10 mg PO HS 06/20/21 [History] Escitalopram [Lexapro] 10 mg PO HS 06/20/21 [History] amLODIPine [Norvasc] 10 mg PO HS 06/20/21 [History] hydroCHLOROthiazide [Hydrodiuril] 25 mg PO DAILY 06/20/21 [History] lisinopriL 40 mg PO HS 06/20/21 [History] Fluticasone Propion/Salmeterol [Advair 100-50 Diskus] 1 inhalation PO BID 04/09/22 [History] Azelastine HCl [Astepro] 137 mcg NASAL DAILY 04/21/22 [History] Acetaminophen Tab [Tylenol] 1,000 mg PO Q6HR PRN #30 tablet 04/25/22 [Rx] Omeprazole [PriLOSEC] 40 mg PO DAILY #30 cap 04/25/22 [Rx] Ondansetron Odt [Zofran Odt] 4 mg PO Q8HR PRN #9 tab 04/25/22 [Rx] Simethicone 40 mg/0.6 ml Drops [Mylicon Drops] 40 mg PO PCHS PRN #30 ml 04/25/22 [Rx] bisacodyL [Dulcolax] 5 mg PO DAILY PRN #10 tab 04/25/22 [Rx] [facility] up [facility]ment(s[facility]Ref[facility] [place] [facility] Activity/Diet/Wound Care/Special Instructions: Wear abdominal binder at all times for comfort. No lifting over 4 pounds in 4 weeks You May shower. No bath tub soaks for two weeks Use Tylenol scheduled for the next 24-48 hours for best pain relief. Use ice along incisions for the today to prevent swelling. No carbonated beverages or straws Open, Cut or crush all pills to the size smaller than a tic tac Do not take any vitamins until seen by surgeon and office Discharge Disposition: HOME SELF-CARE
[2022-04-26] MEDS ORDERED: bisacodyL 5 MG TABLET.DR PO PRN (08:00)
== END 2022-04-25 16:15 | disposition home or self-care (01) | DRG 621 ==
LOC: 2ORMAIN 13:05 → 4SSUR 17:08
PROVIDERS: ADMIT Surgery Plastic and Reconstructive Surgery; ATTEND Surgery Plastic and Reconstructive Surgery
PROC: 8E0W4CZ Robotic Assisted Procedure of Trunk Region, Percutaneous Endoscopic Approach (ICD-10-PCS; 2022-04-24)
PROC: 0DB64Z3 Excision of Stomach, Percutaneous Endoscopic Approach, Vertical (ICD-10-PCS; principal; 2022-04-24 14:20)
DX: E66.01 Morbid (severe) obesity due to excess calories (principal); I11.9 Hypertensive heart disease without heart failure; Z68.42 Body mass index [BMI] 45.0-49.9, adult; J44.9 Chronic obstructive pulmonary disease, unspecified; F32.A Depression, unspecified; E11.9 Type 2 diabetes mellitus without complications; R16.0 Hepatomegaly, not elsewhere classified; K29.50 Unspecified chronic gastritis without bleeding; E78.1 Pure hyperglyceridemia; E53.8 Deficiency of other specified B group vitamins; E60 Dietary zinc deficiency; M47.9 Spondylosis, unspecified; G47.30 Sleep apnea, unspecified; M54.50 Low back pain, unspecified; M19.072 Primary osteoarthritis, left ankle and foot; M19.071 Primary osteoarthritis, right ankle and foot; M17.0 Bilateral primary osteoarthritis of knee; I83.90 Asymptomatic varicose veins of unspecified lower extremity; D13.1 Benign neoplasm of stomach; Z98.41 Cataract extraction status, right eye; Z98.42 Cataract extraction status, left eye; Z90.89 Acquired absence of other organs; Z98.890 Other specified postprocedural states; Z79.51 Long term (current) use of inhaled steroids; Z79.899 Other long term (current) drug therapy; Z87.891 Personal history of nicotine dependence; Z91.012 Allergy to eggs; Z88.1 Allergy status to other antibiotic agents; Z83.438 Family history of other disorder of lipoprotein metabolism and other lipidemia
CPT/HCPCS: 74240; 80051; 80053; 82310; 82565; 83735; 84100; 84520; 85025; 86850; 86900; 86901; 88307; 94640

== ENCOUNTER → 2022-05-14 | Outpatient (CLI) | payer OTHER ==
[2022-05-14 09:18] VITALS: BP 130/84; PULSE 64; TEMP 97.7; BMI 39.0
--- NOTE | 2022-05-14 09:33 | P.BASOAP ---
Subjective Progress Note Date: 05/14/22 Patient had a rash from wearing an abdominal binder. Triamcinolone cream prescribed. Patient reports almost complete resolution of contact dermatitis. Redness resolved. No infection. Patient reports mildly sensation left upper quadrant incisions expected. No reflux. No dysphagia. Follow-up 3 months postop. Overall, excellent weight loss over 30-40 pounds and less than one month Objective - Vital Signs Vital signs: Vital Signs Temp 97.7 F 05/14/22 09:14 Pulse 64 05/14/22 09:14 Resp BP 130/84 05/14/22 09:14 Pulse Ox FiO2 Intake & Output 05/13/22 05/14/22 05/14/22 18:59 06:59 18:59 Weight 134.263 kg Assessment/Plan Plan: Date: 05/14/22 Initial Weight: 161.536 kg Initial BMI: 47.0 Current Weight: 134.263 kg Current BMI: 39.0 Type of Surgery: Total Volume in Band: Previous Volume: Volume Removed: Volume Added: Band Size:
[2022-05-14 14:38] LABS: HCT 42.3 % (39.6-50.0); HGB 14.1 g/dL (13.0-17.0); MCH 29.4 pg (27.0-32.0); MCHC 33.3 g/dL (32.0-37.0); MCV 88.3 fL (80.0-97.0); Mean Platelet Volume 10.7 fL (9.5-12.2); NRBC Per 100 WBC 0 /100 WBCS (0.0-0.0); Platelet Count 209 X 10*3/uL (140-440); RBC 4.79 X 10*6/uL (4.40-5.60); RDW 13.2 % (11.5-14.5); WBC 5.19 X 10*3/uL (4.50-10.00)
[2022-05-14 14:58] LABS: % Iron Saturation 28.68 (15.00-50.00); ALT 18 U/L (10-49); AST 18 U/L (14-35); African American GFR (CKD) 114.3 (60.0-200.0); Albumin 4.1 g/dL (3.8-4.9); Albumin/Globulin Ratio 1.85 (1.60-3.17); Alkaline Phosphatase 69 U/L (41-126); BUN/Creat Ratio 14.42 Ratio (12.00-20.00); Blood Urea Nitrogen 12.3 mg/dL (9.0-27.0); Calcium 9.5 mg/dL (8.7-10.3); Carbon Dioxide 23.9 mmol/L (20.0-27.5); Chloride 105 mmol/L (96-109); Globulin 2.2 g/dL (1.6-3.3); Glucose 82 mg/dL (70-110); Iron 79 ug/dL (65-175); Non-African American GFR(CKD) 98.6 (60.0-200.0); Phosphorus 2.8 mg/dL (2.4-5.1); Potassium 3.9 mmol/L (3.5-5.5); Sodium 141 mmol/L (135-145); Total Iron Binding Capacity 276 ug/dL (228-460); Total Protein 6.3 g/dL (6.2-8.2)
[2022-05-14 15:22] LABS: Chol/HDL Ratio 2.73 Ratio; LDL Cholesterol,Calculated 50.2 mg/dL (0.0-131.0); Prealbumin 14.9 mg/dL (18.0-42.0); VLDL Calculation 15.66 mg/dL (5.00-40.00)
[2022-05-15 12:14] LABS: Zinc, Serum 73 ug/dL (60-130)
== END | disposition home or self-care (01) ==
LOC: BARWHC3 09:04
PROVIDERS: ATTEND Surgery Plastic and Reconstructive Surgery
DX: E66.01 Morbid (severe) obesity due to excess calories (principal); E89.1 Postprocedural hypoinsulinemia; D50.8 Other iron deficiency anemias; D50.9 Iron deficiency anemia, unspecified; K91.2 Postsurgical malabsorption, not elsewhere classified; E44.0 Moderate protein-calorie malnutrition; E44.1 Mild protein-calorie malnutrition; E45 Retarded development following protein-calorie malnutrition; E46 Unspecified protein-calorie malnutrition; E55.9 Vitamin D deficiency, unspecified; K74.1 Hepatic sclerosis; N19 Unspecified kidney failure; T56.894A Toxic effect of other metals, undetermined, initial encounter; K50.90 Crohn's disease, unspecified, without complications
CPT/HCPCS: 84255; 84134; 84425; 80061; 80053; 82607; 82728; 82525; 82746; 83540; 83550; 83735; 84100; 84443; 84590; 84630; 85027; 85610; 85730; 82306; 83970; 83036; 97803; G0463; 99211

== ENCOUNTER → 2022-12-17 | Outpatient (CLI) | payer OTHER ==
[2022-12-17 15:33] VITALS: BP 132/74; PULSE 81; TEMP 98.2; BMI 37.7
--- NOTE | 2022-12-17 16:28 | P.BASOAP ---
Subjective Progress Note Date: 12/17/22 He wants to get to 200 pounds. He has lost 60 pounds. Average protein of 100 g daily. He is eating protein chips. Objective - Vital Signs Vital signs: Vital Signs Temp 98.2 F 12/17/22 15:30 Pulse 81 12/17/22 15:30 Resp BP 132/74 12/17/22 15:30 Pulse Ox FiO2 Intake & Output 12/16/22 12/17/22 12/17/22 18:59 06:59 18:59 Weight 129.727 kg Assessment/Plan Plan: Date: 12/17/22 Initial Weight: 161.536 kg Initial BMI: 47.0 Current Weight: 129.727 kg Current BMI: 37.7 Type of Surgery: Total Volume in Band: Previous Volume: Volume Removed: Volume Added: Band Size:
== END ==
LOC: BARWHC3 11-26 12:52
PROVIDERS: ATTEND Surgery Plastic and Reconstructive Surgery
DX: E66.01 Morbid (severe) obesity due to excess calories (principal); Z68.37 Body mass index [BMI] 37.0-37.9, adult; Z88.1 Allergy status to other antibiotic agents; Z91.012 Allergy to eggs
CPT/HCPCS: 97803; G0463; 99211